=== PATIENT | male | born 1985 | race Caucasian/White ===

== ENCOUNTER 2019-10-04 18:10 | Emergency (ER) | payer BC, SELFPAY ==
[2019-10-04 18:22] VITALS: BP 128/84; PULSE 75; RESP 20; TEMP 36.7; O2SAT 98; BMI 24.5
--- NOTE | 2019-10-04 18:46 | HMH.EDUTC ---
[facility] [place] Clinical Impression: Heat exhaustion Qualifiers: Encounter type: initial encounter Qualified Code(s): T67.5XXA - Heat exhaustion, unspecified, initial encounter Disposition: Home, Self-Care Condition on Discharge: Good Instructions: DI for Heat Exhaustion and Heat Stroke, Heat Exhaustion and Heat Stroke Additional Instructions: Make sure to keep appointment with Family doctor on Thursday *Make sure to stay hydrated Make sure to take frequent breaks and cool down to help prevent heat exhaustion Recommend working inside in cool environment until seen and treated by Family doctor Straight to ER if any life threatening symptoms or if symptoms return Referrals: Negra Mathur MD [Primary Care Provider] - As needed Forms: Work/School Release Time of Disposition: 19:08 Medical Decision Making - Kevin Inquiry Pt receiving controlled substance: No Kevin was queried for this patient: No Vital Signs: 10/04/19 18:22 Temperature 98.1 F Temperature Source Oral Pulse Rate [Right Brachial] 75 Respiratory Rate 20 Blood Pressure [Right Arm] 128/84 Blood Pressure Mean [Right Arm] 98 Blood Pressure Source [Right Arm] Automatic Cuff Blood Pressure Position [Right Arm] Sitting 02 Sat by Pulse Oximetry 98 Oxygen Delivery Method Room Air [facility] [place] HPI - General Stated complaint: Heat Exhaustion Time Seen by Provider: 10/04/19 18:46 Mode of Arrival: Ambulatory Source of Information: Patient Limitations: No Limitations Description of Symptoms (Recalled from Triage Doc. by RN): PATIENT STATES HE HAS BEEN WORKING OUTSIDE ALL DAY AND FELT HE GOT OVERHEATED; HE WAS FEELING LIGHT-HEADED AND NUMBNESS IN HIS HANDS, HOWEVER STATES THAT THOSE SYMPTOMS HAVE NOW SUBSIDED AFTER HE RESTED AND COOLED OFF HEENT Symptoms (Recalled from RN notes): Yes Resp Symptoms (Recalled from RN notes): No Skin Symptoms (Recalled from RN notes): No MS Symptoms (Recalled from RN notes): No Functional Status (Recalled from RN notes): WNL - History of Present Illness Provider Complaint: Patient states that he has a history of heat exhaustion and heat stroke States that earlier he was working outside in the heat when he got hot and got nervous and felt a little light headed and his hand felt like it was tingling States that he came in out of the heat and drink some water and felt much better and symptoms went away States that they made him come in and get checked but he is not having any symptoms at this time States that he has had heat exhaustion before and heat stroke and aware of symptoms and knows when he has symptoms to stop and cool down and they go away - Related Data Home Medications Medication Instructions Recorded Confirmed No Known Home Medications 11/16/17 10/04/19 Allergies Allergy/AdvReac Type Severity Reaction Status Date / Time No Known Allergies Allergy Verified 11/14/17 12:16 - Worker's Comp Is this a Worker's Comp case?: No [facility] History - Hepatitis A Screen Drug use history?: No High risk sexual behaviors?: No History of sexually transmitted infection?: No Currently employed?: No Childcare worker?: No Do you have indoor plumbing?: Yes Do you have electricity?: Yes Attestation statement:: This patient has been screened for Hepatitis A risk factors. I have reviewed the patient's past medical history: Yes Medical History: Denies:: Cancer, Diabetes Mellitus Type 1, Diabetes Mellitus Type 2, Hypertension, MRSA Other Medical History: Reports: Other (heat sensitivity) Other Surgeries: Yes: Other (wisdom teeth extraction) Amputation: No Fractures: No - Social History Smoking Status: Never smoker Alcohol Intake: never Occupational Status: other ROS Obtained: Yes All systems reviewed & no additional complaints, Yes Systems reviewed as appropriate & no additional complaints - Constitutional Constitutional: Reports system reviewed and no additional complaints, except as docu Comments: Reports has h
[2019-10-04 19:13] VITALS: BP 128/84; PULSE 75; RESP 20; TEMP 36.7; O2SAT 98
== END 2019-10-04 19:15 | disposition home or self-care (01) ==
PROVIDERS: Emergency Provider Nurse Practitioner; PCP Family Medicine
DX: T67.5XXA Heat exhaustion, unspecified, initial encounter (principal); Y99.0 Civilian activity done for income or pay
CPT/HCPCS: 99201

== ENCOUNTER 2024-02-19 08:50 | Emergency (ER) | payer SELFPAY ==
[2024-02-19 08:51] VITALS: BP 165/115; PULSE 74; RESP 16; TEMP 36.4; O2SAT 99; BMI 23.1
[2024-02-19 09:00] VITALS: BP 153/90; PULSE 71; O2SAT 98
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
--- NOTE | 2024-02-19 09:21 | PC.NURSE ---
pt to radiology
[2024-02-19] MEDS: CYCLOBENZAPRINE 10MG TABLET 10 MG PO (09:29)
[2024-02-19] MEDS: IBUPROFEN 400 MG TABLET 800 MG PO (09:29)
--- NOTE | 2024-02-19 09:29 | PC.NURSE ---
pt is returned from CT
[2024-02-19 09:30] VITALS: BP 116/96; PULSE 69; O2SAT 99
[2024-02-19 09:57] VITALS: BP 116/96; PULSE 78; RESP 16; TEMP 36.7; O2SAT 99
== END 2024-02-19 10:00 | disposition home or self-care (01) ==
PROVIDERS: Emergency Provider Student in an Organized Health Care Education/Training Program; PCP Family Medicine
DX: S16.1XXA Strain of muscle, fascia and tendon at neck level, initial encounter (principal); M54.2 Cervicalgia; V89.2XXA Person injured in unspecified motor-vehicle accident, traffic, initial encounter; Y93.89 Activity, other specified; Y92.410 Unspecified street and highway as the place of occurrence of the external cause
CPT/HCPCS: 72125; 99284

== ENCOUNTER 2025-02-22 15:38 | Outpatient (RCR) | payer OTHER, BC, SELFPAY | END 2025-02-22 23:59 | disposition home or self-care (01) | LOC: PT 15:38 | PROVIDERS: PCP Family Medicine; Visit Provider Family Medicine | DX: M51.369 Other intervertebral disc degeneration, lumbar region without mention of lumbar back pain or lower extremity pain (principal) | CPT/HCPCS: 97161 ==

== ENCOUNTER 2025-03-27 17:00 | Outpatient (RCR) | payer BC, SELFPAY | END 2025-03-27 23:59 | disposition home or self-care (01) | LOC: PT 17:00 | PROVIDERS: PCP Family Medicine; Visit Provider Family Medicine | DX: M51.369 Other intervertebral disc degeneration, lumbar region without mention of lumbar back pain or lower extremity pain (principal) | CPT/HCPCS: 97014; 97110; G0283 ==